=== PATIENT | female | born 1975 | race Caucasian/White ===

== ENCOUNTER 2016-10-09 16:05 | Emergency (ER) | payer BC ==
[2016-10-09 18:31] VITALS: BP 116/76
--- NOTE | 2016-10-09 19:26 | UC ---
Complaint Female HPI - HPI Summary HPI Summary: UTI symptoms. Gets them frequently. No fever or vomiting. Dysuria, inc frequency , urgency for 4d. - History Of Current Complaint Chief Complaint: UCGU Stated Complaint: URINARY Time Seen by Provider: 10/09/16 19:13 Hx Obtained From: Patient Hx Last Menstrual Period: 09/23/16 Onset/Duration: Gradual Onset, Lasting Days - 4 Timing: Constant Severity Initially: Mild Severity Currently: Moderate Character: Sharp, Burning Aggravating Factor(s): Urination Alleviating Factor(s): Nothing Associated Signs And Symptoms: Negative: Vaginal Bleeding/Discharge, Vaginal Discharge, Nausea, Vomiting(# Of Episodes =), Genital Swelling, Genital Blisters - Risk Factors Ectopic Risk Factor: Negative Ovarian Torsion Risk Factor: Negative - Allergies/Home Medications Allergies/Adverse Reactions: Allergies Allergy/AdvReac Type Severity Reaction Status Date / Time Sulfamethoxazole Allergy Mild Rash Verified 10/09/16 18:31 w/Trimethoprim [From Bactrim] PMH/Surg Hx/FS Hx/Imm Hx - Additional Past Medical History Additional PMH: frequent UTI Endocrine History Of: Denies: Diabetes, Thyroid Disease Cardiovascular History Of: Denies: Cardiac Disorders, Hypertension, Pacemaker/ICD Respiratory History Of: Denies: COPD, Asthma GI/ History Of: Denies: Ulcer, Renal Disease - Surgical History Surgical History: Yes Surgery Procedure, Year, and Place: TUBAL 2004 - Family History Known Family History: Negative: Diabetes, Seizure Disorder - Social History Occupation: Employed Full-time Lives: With Family Alcohol Use: Occasionally Substance Use Type: None Smoking Status (MU): Former Smoker When Did the Patient Quit Smoking/Using Tobacco: 2003 Review of Systems Constitutional: Negative Skin: Negative Eyes: Negative ENT: Negative Respiratory: Negative Cardiovascular: Negative Gastrointestinal: Negative Genitourinary: Dysuria, Frequency, Urgency Motor: Negative Neurovascular: Negative Musculoskeletal: Negative Neurological: Negative Psychological: Negative All Other Systems Reviewed And Are Negative: Yes Physical Exam Triage Information Reviewed: Yes Appearance: Well-Appearing, No Pain Distress, Well-Nourished Vital Signs: Initial Vital Signs Temp 98.4 F 10/09/16 18:27 Pulse 77 10/09/16 18:27 Resp 16 10/09/16 18:27 BP 116/76 10/09/16 18:27 Pulse Ox 99 10/09/16 18:27 Vital Signs Reviewed: Yes Eye Exam: Normal Neck exam: Normal Respiratory Exam: Normal Cardiovascular Exam: Normal Abdomen Description: Positive: Other: - suprapubic discomfort Musculoskeletal Exam: Normal Neurological Exam: Normal Psychological Exam: Normal Skin Exam: Normal Diagnostics - Laboratory Diagnostic Studies Completed/Ordered: dip U/A shows markers for infection Complaint Female Dx - Differential Dx/Diagnosis Provider Diagnoses: UTI Discharge - Discharge Plan Condition: Stable Disposition: HOME Prescriptions: Cephalexin CAP* [Keflex CAP*] 500 mg PO TID #21 cap Patient Education Materials: Urinary Tract Infection in Women (ED) Referrals: Tanya Nielsen MD [Primary Care Provider] -
== END 2016-10-09 19:29 | disposition home or self-care (01) ==
LOC: UCCORT 16:05
DX: N39.0 Urinary tract infection, site not specified (principal); Z88.2 Allergy status to sulfonamides; Z87.891 Personal history of nicotine dependence
CPT/HCPCS: 87086; 99212; G0463

== ENCOUNTER 2017-12-26 14:26 | Emergency (ER) | payer BC ==
[2017-12-26 14:52] VITALS: BP 113/72
[2017-12-26] MEDS ORDERED: Lidocaine 1% MPF* 2 ML VIAL INJ ONE (15:05)
--- NOTE | 2017-12-26 15:05 | UC ---
General HPI - HPI Summary HPI Summary: pt states hx cyst on L back for years. had it I&D twice in the past. past 3 days swelled with some thick white drainage. no fver or hx mrsa/DM. - History of Current Complaint Chief Complaint: UCSkin Stated Complaint: SKIN COMPLAINT Time Seen by Provider: 12/26/17 14:59 Hx Obtained From: Patient Hx Last Menstrual Period: 12/20/17 Onset/Duration: Gradual Onset Timing: Constant Pain Intensity: 3 Associated Signs & Symptoms: Negative: Fever - Allergy/Home Medications Allergies/Adverse Reactions: Allergies Allergy/AdvReac Type Severity Reaction Status Date / Time Sulfa (Sulfonamide Allergy Hives Verified 12/26/17 14:54 Antibiotics) Home Medications: Home Medications Gabapentin CAP(*) [Neurontin 300 CAP(*)] 300 mg PO BID 12/26/17 [History Confirmed 12/26/17] PMH/Surg Hx/FS Hx/Imm Hx - Additional Past Medical History Additional PMH: R facial numbness tx gabapentin - Surgical History Surgical History: Yes Surgery Procedure, Year, and Place: TUBAL 2004 - Family History Known Family History: Negative: Diabetes, Seizure Disorder - Social History Occupation: Employed Full-time Lives: With Family Alcohol Use: Occasionally Substance Use Type: None Smoking Status (MU): Former Smoker When Did the Patient Quit Smoking/Using Tobacco: 2003 - Immunization History Vaccination Up to Date: Yes Review of Systems Constitutional: Negative Skin: Other - draining cyst on back Eyes: Negative ENT: Negative Respiratory: Negative Cardiovascular: Negative Gastrointestinal: Negative Genitourinary: Negative Motor: Negative Neurovascular: Negative Musculoskeletal: Negative Neurological: Negative Psychological: Negative Is Patient Immunocompromised?: No All Other Systems Reviewed And Are Negative: Yes Physical Exam Triage Information Reviewed: Yes Appearance: Well-Appearing Vital Signs: Initial Vital Signs Temp 99.7 F 12/26/17 14:47 Pulse 75 12/26/17 14:47 Resp 16 12/26/17 14:47 BP 113/72 12/26/17 14:47 Pulse Ox 100 12/26/17 14:47 Vital Signs Reviewed: Yes Eyes: Positive: Conjunctiva Clear ENT: Positive: Normal ENT inspection Neck: Positive: Supple, Nontender, No Lymphadenopathy Respiratory: Positive: Lungs clear, Normal breath sounds Cardiovascular: Positive: RRR, No Murmur Abdomen Description: Positive: Nontender, No Organomegaly, Soft Bowel Sounds: Positive: Present Musculoskeletal: Positive: ROM Intact Neurological: Positive: Alert Psychological: Positive: Age Appropriate Behavior Skin Exam: Normal, Other - 2cm area of swelling and fluctuance L side of back but not erythema. evidence of tiny hole in center. Procedures - Procedure Summary Procedure Summary: PROCEDURE: TIME OUT. PREP BETADINE. LINEAR LOCAL WITH 1% LIDOCAINE. TIP OF #11 BLADE USED TO MAKE A SUPERFICIAL STAB INCISION. PRESSURE EXPRESSED THICK WHITE MATERIAL FROM EACH SIDE. NO PUSS OR ODOR. SCANT BLEEDING. CYST NOT OBTAINED. STERILE TECHNIQUE USED. PT TOLERATED WELL. SITE COVERED WITH GAUZE AND PLASTIC TAPE, NON OCCLUDING. Course/Dx - Differential Dx - Multi-Symptom Provider Diagnoses: I & D SEBACEOUS CYST ON BACK Discharge - Sign-Out/Discharge Documenting (check all that apply): Discharge - Discharge Plan Condition: Stable Disposition: HOME Patient Education Materials: Abscess Follow-up (ED) Referrals: Tanya Nielsen MD [Primary Care Provider] - If Needed Ro York MD [Medical Doctor] - 3 Days - Billing Disposition and Condition Condition: STABLE Disposition: HOME
== END 2017-12-26 15:51 | disposition home or self-care (01) ==
LOC: UCCORT 14:26
DX: L72.3 Sebaceous cyst (principal); Z88.2 Allergy status to sulfonamides; Z87.891 Personal history of nicotine dependence; R20.0 Anesthesia of skin
CPT/HCPCS: 10060; 99211; G0463

== ENCOUNTER 2019-01-13 11:51 | Emergency (ER) | payer BC ==
[2019-01-13 12:32] VITALS: BP 124/67
--- NOTE | 2019-01-13 12:54 | UC ---
UC General HPI - HPI Summary HPI Summary: Patient c/o headache for the past several days - frontal, has subsided somewhat. Then developed sore throat and raspy voice with low grade temp. Some congestion and mild productive cough. Also with low back pain - states she gets low back pain when she gets sick. 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 But was off yesterday. No rash. No N/V/D. No numbness in lower ext and no loss in bowel or bladder. - History of Current Complaint Chief Complaint: UCBackPain Stated Complaint: FEVER,ACHES Time Seen by Provider: 01/13/19 12:43 Hx Last Menstrual Period: December 29 Pain Intensity: 5 - Allergy/Home Medications Allergies/Adverse Reactions: Allergies Allergy/AdvReac Type Severity Reaction Status Date / Time Sulfa (Sulfonamide Allergy Hives Verified 01/13/19 12:33 Antibiotics) PMH/Surg Hx/FS Hx/Imm Hx Previously Healthy: Yes - Surgical History Surgical History: Yes Surgery Procedure, Year, and Place: TUBAL 2004 - Family History Known Family History: Negative: Diabetes, Seizure Disorder - Social History Alcohol Use: Occasionally Substance Use Type: None Smoking Status (MU): Former Smoker When Did the Patient Quit Smoking/Using Tobacco: 2003 - Immunization History Vaccination Up to Date: Yes Review of Systems All Other Systems Reviewed And Are Negative: Yes Constitutional: Positive: Fever ENT: Positive: Sore Throat, Sinus Congestion Physical Exam Triage Information Reviewed: Yes Appearance: Well-Appearing Vital Signs: Initial Vital Signs Temp 99.4 F 01/13/19 12:26 Pulse 81 01/13/19 12:26 Resp 18 01/13/19 12:26 BP 124/67 01/13/19 12:26 Pulse Ox 100 01/13/19 12:26 Eyes: Positive: Conjunctiva Clear ENT: Positive: Pharyngeal erythema, Nasal congestion, TMs normal Neck: Positive: Supple, Enlarged Nodes @ - anterior cervical chain Respiratory: Positive: Lungs clear, Normal breath sounds Cardiovascular: Positive: RRR, No Murmur Musculoskeletal: Positive: Other: - paraspinal tenderness b/l in lumbar region Skin Exam: Normal Course/Dx - Course Course Of Treatment: This is a 43 yr old with sore throat, headache and low grade temp Assessment Rapid strep: Negative Plan Continue supportive care Recommend ibuprofen as needed for pain/fever as directed Can trial decongestant and/or cough suppressant for congestion and cough If symptoms persist or worsen, call your primary for further evaluation or return to urgent care - Diagnoses Provider Diagnosis: Viral syndrome Discharge - Sign-Out/Discharge Documenting (check all that apply): Patient Departure All imaging exams completed and their final reports reviewed: No Studies - Discharge Plan Condition: Good Disposition: HOME Patient Education Materials: Viral Syndrome (ED) Forms: *Work Release Referrals: Jahaira Hollis MD [Primary Care Provider] - Additional Instructions: Your strep throat test was negative Continue supportive care Recommend ibuprofen as needed for pain/fever as directed Can trial decongestant and/or cough suppressant for congestion and cough If symptoms persist or worsen, call your primary for further evaluation or return to urgent care - Billing Disposition and Condition Condition: GOOD Disposition: Home
== END 2019-01-13 13:31 | disposition home or self-care (01) ==
LOC: UCCORT 11:51
DX: B34.9 Viral infection, unspecified (principal); J02.9 Acute pharyngitis, unspecified; R51 Headache; R05 Cough; R50.9 Fever, unspecified; Z88.2 Allergy status to sulfonamides; Z87.891 Personal history of nicotine dependence
CPT/HCPCS: 87651; 99211; G0463

== ENCOUNTER 2019-11-23 12:16 | Emergency (ER) | payer SELFPAY ==
[2019-11-23 13:36] VITALS: BP 107/62
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
== END 2019-11-23 15:35 | disposition home or self-care (01) ==
LOC: UCCORT 12:16
DX: S20.211A Contusion of right front wall of thorax, initial encounter (principal); W50.0XXA Accidental hit or strike by another person, initial encounter; Y92.9 Unspecified place or not applicable; Z88.2 Allergy status to sulfonamides; Z87.891 Personal history of nicotine dependence
CPT/HCPCS: 99211; G0463